=== PATIENT | female | born 1970 | race Caucasian/White ===

== ENCOUNTER 2022-07-02 12:35 | Emergency (ER) | payer BC ==
[~2022-07-02] VITALS: Ht 157.5 cm; Wt 92.5 kg
--- NOTE | 2022-07-02 12:35 | NUR ---
PT BIBA TO ER BED 5
--- NOTE | 2022-07-02 12:43 | NUR ---
DR MONZON AT BEDSIDE EVALUATING PT
[2022-07-02 12:45] VITALS: BP 135/92
[2022-07-02] MEDS ORDERED: predniSONE 20 MG TAB PO ONE (12:50)
[2022-07-02] MEDS ORDERED: BENZ200C4 PO (13:44)
[2022-07-02] MEDS ORDERED: PRED20TA5 PO (13:44)
--- NOTE | 2022-07-02 13:54 | NUR ---
PT VERY CONVERSANT , AMBULATES WITH STEADY GAIT. NO AUDIBLE WHEEZING
[2022-07-02 14:15] VITALS: BP 135/92
--- NOTE | 2022-07-02 15:16 | NUR ---
Patient discharged with v/s stable. Written and verbal after care instructions given and explained. Patient verbalized understanding. Ambulatory with steady gait. All questions addressed prior to discharge. Advised to follow up with PMD.
== END 2022-07-02 14:18 | disposition home or self-care (01) ==
LOC: MED 12:35
DX: J45.901 Unspecified asthma with (acute) exacerbation (principal); Z20.822 Contact with and (suspected) exposure to COVID-19; E11.9 Type 2 diabetes mellitus without complications; Z72.89 Other problems related to lifestyle; Z79.4 Long term (current) use of insulin; Z79.899 Other long term (current) drug therapy
CPT/HCPCS: 71045; 87426; 87804; 99284; J7512

== ENCOUNTER 2022-08-18 13:06 | Emergency (ER) | payer BC, OTHER ==
[~2022-08-18] VITALS: Ht 157.5 cm; Wt 95.3 kg
[~2022-08-18 13:06] MED LIST: BENZ200C4 PO; PRED20TA5 PO
[2022-08-18 13:52] VITALS: BP 126/76
--- NOTE | 2022-08-18 14:54 | NUR ---
THUMB SPICA APPLIED TO R THUMB
--- NOTE | 2022-08-18 15:00 | NUR ---
Patient discharged with v/s stable. Written and verbal after care instructions given and explained. Patient verbalized understanding. Ambulatory with steady gait. All questions addressed prior to discharge. Advised to follow up with PMD. HAND PAIN, CHRONIC.
== END 2022-08-18 15:00 | disposition home or self-care (01) ==
LOC: MED 13:06
DX: M79.641 Pain in right hand (principal)
CPT/HCPCS: 99283

== ENCOUNTER 2023-12-20 19:12 | Emergency (ER) | payer BC, OTHER ==
[~2023-12-20] VITALS: Ht 157.5 cm; Wt 91.8 kg
[2023-12-20 19:33] VITALS: BP 127/81; PULSE 83; RESP 18; TEMP 98.2; O2SAT 98
== END 2023-12-20 22:06 | disposition home or self-care (01) ==
LOC: MED 19:12
DX: S60.012A Contusion of left thumb without damage to nail, initial encounter (principal); J45.909 Unspecified asthma, uncomplicated; E11.9 Type 2 diabetes mellitus without complications; Z79.899 Other long term (current) drug therapy; X58.XXXA Exposure to other specified factors, initial encounter; Y92.89 Other specified places as the place of occurrence of the external cause; Y93.89 Activity, other specified; Y99.0 Civilian activity done for income or pay
CPT/HCPCS: 73130; 99283; Q0092